=== PATIENT | male | born 1990 | race Caucasian/White ===

== ENCOUNTER → 2016-12-11 | Outpatient (CLI) | payer BC ==
[2016-12-11 12:24] LABS: Anion Gap 13 mmol/L; Blood Urea Nitrogen 14 mg/dL (9-20); Carbon Dioxide 28 mmol/L (22-30); Chloride 103 mmol/L (98-107); Glucose 98 mg/dL (74-99); Non-African American GFR(MDRD) >60 (>60 ml/min/1.73 sqM); Potassium 4.2 mmol/L (3.5-5.1); Sodium 144 mmol/L (137-145)
== END | disposition home or self-care (01) ==
LOC: LABWHC1 11:44
PROVIDERS: ATTEND Internal Medicine Endocrinology, Diabetes & Metabolism
DX: E55.9 Vitamin D deficiency, unspecified (principal); E27.1 Primary adrenocortical insufficiency
CPT/HCPCS: 36415; 80048; 84439; 84443

== ENCOUNTER 2017-03-25 22:07 | Emergency (ER) | payer BC ==
[2017-03-25 22:20] VITALS: BP 132/78; PULSE 90; RESP 18; TEMP 99.1
[2017-03-25] MEDS ORDERED: methylPREDNISolone SOD SUCCI 125 MG/2 ML VIAL IM STA (22:25)
--- NOTE | 2017-03-25 22:29 | ED ---
Skin/Abscess/FB HPI - General Chief complaint: Skin/Abscess/Foreign Body Stated complaint: Poison Amarilys Time Seen by Provider: 03/25/17 22:22 Source: patient, RN notes reviewed Mode of arrival: ambulatory Limitations: no limitations - History of Present Illness Initial comments: 26-year-old male presents to the emergency department with a chief complaint of poison amarilys. 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 Patient states had poison amarilys for the past 2 days. Patient states he tried [id number] treatments without improvement. Patient states that his arms and his legs. Patient denies any genital involvement but states that spread to his neck. Patient states he is without fever. He should be evaluated. Patient states it is not currently having any other symptoms at this time.Patient denies any recent fever, chills, shortness of breath, chest pain, back pain, abdominal pain , nausea vomiting, numbness or tingling, dysuria or hematuria, constipation or diarrhea, headaches or visual changes, or any other current symptoms. - Related Data Home Medications Medication Instructions Recorded Confirmed Fludrocortisone [Florinef] 0.1 mg PO DAILY 04/16/14 10/07/16 Hydrocortisone [Cortef] 10 mg PO HS 04/27/14 10/07/16 Hydrocortisone [Cortef] 20 mg PO QAM 10/07/16 10/07/16 Ranitidine HCl [Zantac] 150 mg PO BID 10/07/16 10/07/16 Previous Rx's Medication Instructions Recorded Albuterol Sulfate [Proair Hfa] 1 - 2 puff INHALATION Q4HR PRN #1 10/07/16 inhaler Azithromycin [Zithromax Z-pack] 0 mg PO DIRECTED #1 pack 10/07/16 methylPREDNISolone [Medrol Dose 4 mg PO DIRECTED #1 pack 10/07/16 Pack] Calamine/Zinc Oxide Lotion 1 applic TOPICAL QID 10 Days 03/25/17 [Calamine Lotion] methylPREDNISolone Dose Pack 4 mg PO DIRECTED #21 package 03/25/17 [Medrol Dose Pack] Allergies Allergy/AdvReac Type Severity Reaction Status Date / Time No Known Allergies Allergy Verified 03/25/17 22:20 Review of Systems ROS Statement: Those systems with pertinent positive or pertinent negative responses have been documented in the HPI. ROS Other: All systems not noted in ROS Statement are negative. Past Medical History Past Medical History: No Reported History Additional Past Medical History / Comment(s): addisons History of Any Multi-Drug Resistant Organisms: None Reported Past Surgical History: No Surgical Hx Reported Additional Past Surgical History / Comment(s): nose surgery Past Anesthesia/Blood Transfusion Reactions: No Reported Reaction Additional Past Anesthesia/Blood Transfusion Reaction / Comment(s): NO PREVIOUS SURGERY Past Psychological History: No Psychological Hx Reported Smoking Status: Former smoker Past Alcohol Use History: Occasional Past Drug Use History: Marijuana General Exam Limitations: no limitations General appearance: alert, in no apparent distress Head exam: Present: atraumatic, normocephalic, normal inspection Respiratory exam: Present: normal lung sounds bilaterally. Absent: respiratory distress, wheezes, rales, rhonchi, stridor Cardiovascular Exam: Present: regular rate, normal rhythm, normal heart sounds. Absent: systolic murmur, diastolic murmur, rubs, gallop, clicks Neurological exam: Present: alert, oriented X3 Psychiatric exam: Present: normal affect, normal mood Skin exam: Present: warm, dry, intact, rash (Appears to have a rash to arms and legs does appear to be a dermatitis.) Course Vital Signs 03/25/17 22:17 Temperature 99.1 F Pulse Rate 90 Respiratory 18 Rate Blood Pressure 132/78 O2 Sat by Pulse 99 Oximetry Medical Decision Making - Medical Decision Making 26-year-old male presents for what appears to be a contact dermatitis from poison amarilys. We will start him on a course of steroids. He did receive a steroid injection here. Discussing Motrin Tylenol. We discussed return parameters and follow-up. We discussed outpatient care. Patient stated he understood all questions were answered. He will be discharged home. Disposition Clinical Impression: Poison amarilys dermatitis Disposition: HOME SELF-CARE Condition: Stable Instructions: Poison Amarilys (ED) Additional Instructions: Please use medication as discussed. Please follow up with family doctor if symptoms have not improved over the next two days. Please return to the emergency room if your symptoms increase or worsen or for any other concerns. Prescriptions: Calamine/Zinc Oxide Lotion [Calamine Lotion] 1 applic TOPICAL QID 10 Days methylPREDNISolone Dose Pack [Medrol Dose Pack] 4 mg PO DIRECTED #21 package Referrals: Pedro Ibarra MD [Primary Care Provider] - 1-2 days Time of Disposition: 22:28
== END 2017-03-25 22:33 | disposition home or self-care (01) ==
LOC: EC 22:07
DX: L23.7 Allergic contact dermatitis due to plants, except food (principal); E27.1 Primary adrenocortical insufficiency; Z87.891 Personal history of nicotine dependence; Z79.899 Other long term (current) drug therapy
CPT/HCPCS: 99283; 96372; J2930

== ENCOUNTER 2018-06-01 10:23 | Emergency (ER) | payer BC ==
[2018-06-01 10:40] VITALS: BP 131/73; PULSE 57; RESP 18; TEMP 98.5
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
--- NOTE | 2018-06-01 11:18 | XR ---
Right hand HISTORY: Trauma and pain 3 views of the right hand There is displaced fifth metacarpal mid diaphyseal fracture with volar angulation. There is soft tiss ue swelling associated. No dislocation. IMPRESSION: Boxer's fracture.
[2018-06-01] MEDS ORDERED: ACET/COD 300 MG/30 MG STARTER PACK 6 TAB BTL PO STA (11:40)
== END 2018-06-01 12:10 | disposition home or self-care (01) ==
LOC: EC 10:23
DX: S62.306A Unspecified fracture of fifth metacarpal bone, right hand, initial encounter for closed fracture (principal); Z79.52 Long term (current) use of systemic steroids; Z87.891 Personal history of nicotine dependence; W22.8XXA Striking against or struck by other objects, initial encounter
CPT/HCPCS: 29125; 99283

== ENCOUNTER → 2018-06-03 | Outpatient (CLI) | payer BC ==
[2018-06-03 10:32] LABS: Potassium 4.3 mmol/L (3.5-5.1)
== END | disposition home or self-care (01) ==
LOC: LABPAT 09:48
PROVIDERS: ATTEND Orthopaedic Surgery
DX: Z01.812 Encounter for preprocedural laboratory examination (principal)
CPT/HCPCS: 36415; 80051

== ENCOUNTER 2018-06-05 10:02 | Day surgery (SDC) | payer BC ==
[2018-06-03 14:30] VITALS: BMI 22.5
--- NOTE | 2018-06-04 09:22 | HP ---
HISTORY AND PHYSICAL CHIEF COMPLAINT: Right hand pain. 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 He is walking on a sidewalk when he fell injuring his right hand. He was seen in the emergency room and was placed into a splint. He denies previous injury. PAST MEDICAL HISTORY: Significant for Robin's disease. SURGICAL HISTORY: Negative. CURRENT ALLERGIES: 1. Cortef. 2. Florinef. 3. Tylenol No. 3. ALLERGIES: He denies drug allergies. FAMILY HISTORY: Noncontributory. SOCIAL HISTORY: Negative for current tobacco or alcohol use. REVIEW OF SYSTEMS: Sixteen point review of systems otherwise reviewed and is noncontributory. PHYSICAL EXAMINATION: On examination, the patient is approximately 5 feet 10 inches, 157 pounds of mesomorphic habitus. He is nontender about the right shoulder, elbow and wrist. On examination of his right hand, he is tender about the 5th metacarpal shaft. He has no rotational abnormality. He has moderate dorsal hand swelling. He has limited range of motion. His distal neurovascular exam appears intact in the right upper extremity. X-rays of the right hand obtained from the emergency room showed a 5th metacarpal shaft fracture with significant angulation and displacement. IMPRESSION: Right 5th metacarpal shaft fracture-displaced. RECOMMENDATIONS: I talked to the patient at length regarding his condition and treatment options. At this point, he opts to proceed with surgery. We will plan to proceed with closed reduction with percutaneous pinning. We will likely perform that as an outpatient procedure. Risks and benefits were discussed at length in layman's terms. MMODL / IJN: [id number] /
[~2018-06-05 10:02] MED LIST: ACETAMINOPHEN TAB 500 MG TAB PO ONE; LACTATED RINGERS 1,000 ML IV SCH; LIDOCAINE 1% 20 ML VIAL (10MG/ML) FOR IV START INTRADERMA PRN; MELOXICAM 7.5 MG TAB PO ONE; TRANEXAMIC ACID 1,000 MG in SODIUM CHLORIDE 0.9% 50 ML IVPB ONE; ceFAZolin IN SWFI 2 GM/20 ML SYRINGE IVP ONE
[2018-06-05 11:41] LABS: Glucose,Whole Blood 38 mg/dL (75-99)
[2018-06-05 11:41] LABS: Glucose,Whole Blood 74 mg/dL (75-99)
[2018-06-05] MEDS ORDERED: MIDAZOLAM 2 MG/2 ML VIAL IV ONE (12:10)
[2018-06-05] MEDS ORDERED: fentaNYL (PF) 50 MCG/ML 2 ML AMP ONE (12:15)
[2018-06-05] MEDS ORDERED: MIDAZOLAM 2 MG/2 ML VIAL ONE (12:15)
[2018-06-05] MEDS ORDERED: HYDROCORTISONE SUCCINATE 100 MG/2 ML VIAL ONE (12:15)
[2018-06-05] MEDS ORDERED: PROPOFOL 10 MG/ML 20 ML VIAL IV ONE (12:15)
[2018-06-05] MEDS ORDERED: ONDANSETRON 4 MG/2 ML VIAL ONE (12:15)
[2018-06-05] MEDS ORDERED: DEXAMETHASONE SOD PHOS (MDV) 100 MG/10 ML VIAL ONE (12:15)
[2018-06-05] MEDS ORDERED: LIDOCAINE 1% INJ 10MG/ML (20 ML MDV) ONE (12:15)
[2018-06-05] MEDS ORDERED: ePHEDrine SULFATE/0.9% NACL/PF 50 MG/5 ML SYRINGE IV ONE (12:15)
--- NOTE | 2018-06-05 12:55 | P.OP ---
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 A discussion of the risks and benefits of operative intervention versus conservative measures was made with patient. He opted to proceed with surgery. Operative risks to include infection, neurovascular injury, development of blood clots, possible development of nonunion, possible development of malunion and need for subsequent procedures was discussed. Informed consent was obtained. Operative Findings: As below Description of Procedure: The patient was brought to the operating room, and after induction of general anesthesia the right upper extremity was prepped and draped in normal fashion. The right fifth metacarpal shaft fracture was then reduced with manipulation. A 0.054 inch K wire was then inserted in a retrograde fashion through the metacarpal head pain fracture site. This is verified on the AP lateral and oblique views with fluoroscopy. I felt there is adequate reduction of the fracture and placement of the implant this point. The K wire was clipped below the level of the skin. A sterile dressing was applied in addition to an ulnar gutter splint with the hand in functional position. Prior to dressing placement a did check rotation and no significant rotational abnormality was noted. The patient was awoken from general anesthesia and transferred to recovery room in good condition. Blood loss was estimated 1 mL. No complications were incurred.
[2018-06-05] MEDS: HYDROmorphone 1 MG/ML 1 ML SYRINGE IVP ONE ×4 (13:06→13:24)
[2018-06-05 13:08] VITALS: RESP 16; TEMP 97
[2018-06-05] MEDS ORDERED: MEPERIDINE 50 MG/ML SYRINGE IVP ONE (13:32)
--- NOTE | 2018-06-05 13:39 | FL ---
EXAMINATION TYPE: FL guidance operating room, XR hand complete RT DATE OF EXAM: 06/05/2018 CLINICAL HISTORY: Right hand fracture TECHNIQUE: Fluoroscopy. Limited intraoperative views right hand. COMPARISON: Right hand x-ray from 4 days ago. FINDINGS: Fluoroscopic guidance was provided during open reduction and external fixation procedure p erformed by Dr. Frias. A total of 39 seconds of fluoroscopic time was utilized during the procedure and 3 spot intraoperative images are acquired. Intraoperative images acquired show placement of K wire through transverse fracture midshaft level fi fth metacarpal. IMPRESSION: As Above.
[2018-06-05 14:43] VITALS: BP 117/75; PULSE 72
== END 2018-06-05 15:00 | disposition home or self-care (01) ==
LOC: OR 10:02
PROVIDERS: ATTEND Orthopaedic Surgery
DX: S62.326A Displaced fracture of shaft of fifth metacarpal bone, right hand, initial encounter for closed fracture (principal); W19.XXXA Unspecified fall, initial encounter; Y93.01 Activity, walking, marching and hiking; E27.1 Primary adrenocortical insufficiency; Y92.480 Sidewalk as the place of occurrence of the external cause; Z88.8 Allergy status to other drugs, medicaments and biological substances; Z88.5 Allergy status to narcotic agent; Z79.52 Long term (current) use of systemic steroids
CPT/HCPCS: 73130; 26608; J2250; J1720; J2175; J2405; J2001; J3010; J1170; J1100; J2704; J0690

== ENCOUNTER 2018-07-14 10:36 | Day surgery (SDC) | payer BC ==
[2018-07-09 11:47] VITALS: BMI 22.5
--- NOTE | 2018-07-13 15:15 | HP ---
HISTORY AND PHYSICAL CHIEF COMPLAINT: Right hand pain. 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 Clinically, he was noted to have denied the fracture site, however, has irritation because of the previously placed pin. PAST MEDICAL HISTORY: Significant for Riverdale's disease. PAST SURGICAL HISTORY: Significant for pinning of a right 5th metacarpal shaft fracture. CURRENT MEDICATIONS: Cortef and Florinef. ALLERGIES: He denies drug allergies. FAMILY HISTORY: Negative. SOCIAL HISTORY: Negative for current tobacco or alcohol use. REVIEW OF SYSTEMS: Sixteen point review of systems otherwise reviewed and is noncontributory. PHYSICAL EXAMINATION: On examination, the patient is approximately 5 foot 10, 157 pounds of mesomorphic habitus. HEENT exam is nonfocal. Neck is supple. He is nontender about the right shoulder, elbow and wrist. On examination of his right hand, he is nontender about the 5th metacarpal shaft. He has full digital range of motion. He has tenderness over the palpable distal pin at the metacarpal head. His distal neurovascular appears intact in the right digits. X-rays of the right hand obtained in the office show previous pinning of a 5th metacarpal shaft fracture in good alignment with moderate callus formation. IMPRESSION: 1. Status post closed reduction and pinning, right 5th metacarpal shaft fracture. 2. Irritating hardware, right 5th digit. 3. History of Riverdale's disease. RECOMMENDATIONS: I talked to the patient regarding his options at this point. At this point, we will plan to proceed with removal of the pin utilizing local anesthetic and IV sedation. We will likely perform that as an outpatient procedure. MMODL / IJN: [id number] /
[~2018-07-14 10:36] MED LIST changes: -ACETAMINOPHEN TAB 500 MG TAB PO ONE; +DEXAMETHASONE SOD PHOSPHATE 10 MG/ML 1 ML VIAL IV ONE; -MELOXICAM 7.5 MG TAB PO ONE; +MIDAZOLAM 2 MG/2 ML VIAL IV PRN; +ONDANSETRON 4 MG/2 ML VIAL IVP ONE; -TRANEXAMIC ACID 1,000 MG in SODIUM CHLORIDE 0.9% 50 ML IVPB ONE; +fentaNYL (PF) 50 MCG/ML 2 ML AMP IV PRN
[2018-07-14 11:02] VITALS: RESP 16; TEMP 98
[2018-07-14 11:08] LABS: Glucose,Whole Blood 87 mg/dL (75-99)
[2018-07-14] MEDS ORDERED: MIDAZOLAM 2 MG/2 ML VIAL ONE (13:01)
[2018-07-14] MEDS ORDERED: SPIRONOLACTONE-HCTZ 25-25MG 1 EACH TAB ONE (13:01)
[2018-07-14] MEDS ORDERED: PROPOFOL 10 MG/ML 20 ML VIAL IV ONE (13:01)
[2018-07-14] MEDS ORDERED: fentaNYL (PF) 50 MCG/ML 2 ML AMP ONE (13:01)
[2018-07-14] MEDS ORDERED: LIDOCAINE 1% INJ 10MG/ML (20 ML MDV) SQ ONE ×3 (13:08)
--- NOTE | 2018-07-14 13:16 | P.OP ---
Date of Procedure: 07/14/18 Preoperative Diagnosis: Irritating hardware right fifth metacarpal Postoperative Diagnosis: Same Procedure(s) Performed: Removal K wire right fifth metacarpal Anesthesia: MAC, local Surgeon: Yaron Frias Estimated Blood Loss (ml): 1 Pathology: none sent Condition: stable Disposition: PACU Indications for Procedure: The patient's a 27-year-old male who underwent recent closed reduction with pinning of right fifth metacarpal shaft fracture presents with irritation secondary to the hardware. Discussion of the risks and benefits of removal this was made with the patient. He opted to proceed. Operative risks were discussed. Informed consent was obtained. Operative Findings: As below Description of Procedure: The patient was brought to the operating room, and after induction of IV sedation the right upper extremity was prepped and draped in normal fashion. 5 mL 1% lidocaine was injected over the fifth metacarpal head. A small stab incision was made over the palpable K wire. The soft tissues were bluntly dissected and the K wire removed. The wound was irrigated. The skin was reapproximated with Steri-Strips. A sterile dressing was applied. The patient was then awoken from sedation and transferred to recovery room in good condition. Blood loss was estimated 1 mL. No complications were incurred.
[2018-07-14 13:41] VITALS: BP 119/73; PULSE 75
== END 2018-07-14 14:05 | disposition home or self-care (01) ==
LOC: OR 10:36
PROVIDERS: ATTEND Orthopaedic Surgery
DX: T84.89XA Other specified complication of internal orthopedic prosthetic devices, implants and grafts, initial encounter (principal); Y83.8 Other surgical procedures as the cause of abnormal reaction of the patient, or of later complication, without mention of misadventure at the time of the procedure; E27.1 Primary adrenocortical insufficiency; Z79.899 Other long term (current) drug therapy
CPT/HCPCS: 20680; J2250; J1100; J2405; J2001; J3010; J2704; J0690

== ENCOUNTER 2018-11-20 15:01 | Observation (INO) | payer BC ==
[2018-11-20] MEDS ORDERED: ONDANSETRON 4 MG/2 ML VIAL IVP STA (15:49)
[2018-11-20] MEDS ORDERED: SODIUM CHLORIDE 0.9% 1,000 ML IV STA ×2 (15:49→17:24)
[2018-11-20] MEDS ORDERED: KETOROLAC 30 MG/ML 1 ML VIAL IVP STA (15:49)
--- NOTE | 2018-11-20 15:56 | ED ---
General Adult HPI - General Source: patient, RN notes reviewed Mode of arrival: ambulatory Limitations: no limitations - History of Present Illness Location: abdomen Radiation: non-radiation Quality: stabbing Consistency: constant Improves with: none Worsens with: none <Marco Haile - Last Filed: 11/20/18 17:54> <Hong Rodriguez - Last Filed: 11/20/18 18:16> - General Chief complaint: Abdominal Pain Stated complaint: vomiting Time Seen by Provider: 11/20/18 15:39 - History of Present Illness Initial comments: 27-year-old male with a past medical history of Robin's disease presents to the emergency department for a chief complaint of abdominal pain, nausea, and vomiting. Patient states this has been ongoing for the past 3 days. He states he has been nauseous and vomited multiple times. He has also had diarrhea multiple times a day. Patient states he was seen by his primary yesterday and given Zofran but it is not helping. Patient states he also has generalized abdominal pain worsen the left upper quadrant. He states he has never had problems with Robin's disease before. Patient has no other complaints at this time including shortness of breath, chest pain, abdominal pain, nausea or vomiting, headache, or visual changes. (Marco Haile) - Related Data Home Medications Medication Instructions Recorded Confirmed Fludrocortisone [Florinef] 0.1 mg PO DAILY 04/16/14 11/20/18 Hydrocortisone [Cortef] 5 mg PO HS 11/20/18 11/20/18 Hydrocortisone [Cortef] 10 mg PO QAM 11/20/18 11/20/18 Ondansetron [Zofran ODT] 4 mg PO Q12H PRN 11/20/18 11/20/18 Allergies Allergy/AdvReac Type Severity Reaction Status Date / Time No Known Allergies Allergy Verified 11/20/18 16:24 Review of Systems ROS Other: All systems not noted in ROS Statement are negative. <Marco Haile - Last Filed: 11/20/18 17:54> ROS Other: All systems not noted in ROS Statement are negative. <Hong Rodriguez - Last Filed: 11/20/18 18:16> ROS Statement: Those systems with pertinent positive or pertinent negative responses have been documented in the HPI. Past Medical History Past Medical History: No Reported History Additional Past Medical History / Comment(s): addisons disease, fx rt hand History of Any Multi-Drug Resistant Organisms: None Reported Past Surgical History: No Surgical Hx Reported Additional Past Surgical History / Comment(s): nose surgery. FX RIGHT HAND SX Past Anesthesia/Blood Transfusion Reactions: No Reported Reaction Additional Past Anesthesia/Blood Transfusion Reaction / Comment(s): NO PREVIOUS SURGERY Past Psychological History: No Psychological Hx Reported Smoking Status: Former smoker Past Alcohol Use History: Occasional Past Drug Use History: Marijuana - Past Family History Mother Family Medical History: No Reported History <Marco Haile - Last Filed: 11/20/18 17:54> General Exam Limitations: no limitations General appearance: alert, in no apparent distress Head exam: Present: atraumatic, normocephalic, normal inspection Eye exam: Present: normal appearance ENT exam: Present: normal exam, mucous membranes moist Neck exam: Present: normal inspection, full ROM. Absent: tenderness, meningismus, lymphadenopathy Respiratory exam: Present: normal lung sounds bilaterally. Absent: respiratory distress, wheezes, rales, rhonchi, stridor Cardiovascular Exam: Present: regular rate, normal rhythm, normal heart sounds. Absent: systolic murmur, diastolic murmur, rubs, gallop, clicks GI/Abdominal exam: Present: soft, tenderness (minimal generalized tenerness worse in LUQ without gaurding.), normal bowel sounds. Absent: distended, guarding, rebound, rigid Neurological exam: Present: alert, oriented X3, CN II-XII intact Psychiatric exam: Present: normal affect, normal mood <Marco Haile - Last Filed: 11/20/18 17:54> Course <Marco Haile - Last Filed: 11/20/18 17:54> <Hong Rodriguez - Last Filed: 11/20/18 18:16> Vital Signs 11/20/18 11/20/18 15:11 16:23 Temperature 98.2 F Pulse Rate 107 H 89 Respiratory 18 18 Rate Blood Pressure 114/77 129/92 O2 Sat by Pulse 97 100 Oximetry - Reevaluation(s) Reevaluation #1: 11/20/18 17:44 PA supervision: I proceeded [id number] evaluation the patient the patient's been having nausea vomiting and has a history of adrenal insufficiency. He is found to be markedly dehydrated with hemoconcentration and renal insufficiency. Patient will be admitted. I did discuss the case with Dr. Alarcon who was in the emergency department. I do agree with the assessment and plan. (Hong Rodriguez) Medical Decision Making - Lab Data Result diagrams: 11/20/18 16:09 11/20/18 16:09 <Marco Haile - Last Filed: 11/20/18 17:54> - Lab Data Result diagrams: 11/20/18 16:09 11/20/18 16:09 <Hong Rodriguez - Last Filed: 11/20/18 18:16> - Medical Decision Making 27-year-old male presents to the emergency department for a chief complaint of nausea vomiting, diarrhea, abdominal pain. Patient does have a history of Robin's disease, takes solu-cortef, solu-flornef at home. Patient states this has been ongoing for the past 3 days. Vitals within acceptable limits. On exam patient does have some abdominal tenderness worse in the left upper quadrant. Hemoglobin 20.1, hematocrit 56.1. Creatinine 1.68. Patient likely dehydrated from being unable to keep down solids or liquids over the past 3 days. Given 2 L fluids. Patient also has not been able to keep down his Solu-Cortef. This was ordered and patient was given 100 mg. Acute abdominal series was ordered to rule out free air as patient does have upper abdominal pain. This showed a normal chest. Report an image was reviewed by myself and Dr. Rodriguez. Dr. Alarcon was spoken to about this case and accepts admission at this time. ( Marco Haile) - Lab Data Lab Results 11/20/18 11/20/18 Range/Units 16:09 16:09 WBC 13.2 H (3.8-10.6) k/uL RBC 6.94 H (4.30-5.90) m/uL Hgb 20.1 H* (13.0-17.5) gm/dL Hct 56.1 H (39.0-53.0) % MCV 80.9 (80.0-100.0) fL MCH 29.0 (25.0-35.0) pg MCHC 35.9 (31.0-37.0) g/dL RDW 12.1 (11.5-15.5) % Plt Count 279 (150-450) k/uL Neutrophils % 73 % Lymphocytes % 15 % Monocytes % 8 % Eosinophils % 2 % Basophils % 0 % Neutrophils # 9.7 H (1.3-7.7) k/uL Lymphocytes # 1.9 (1.0-4.8) k/uL Monocytes # 1.0 (0-1.0) k/uL Eosinophils # 0.3 (0-0.7) k/uL Basophils # 0.0 (0-0.2) k/uL Sodium 139 (137-145) mmol/L Potassium 4.6 (3.5-5.1) mmol/L Chloride 98 (98-107) mmol/L Carbon Dioxide 23 (22-30) mmol/L Anion Gap 18 mmol/L BUN 23 H (9-20) mg/dL Creatinine 1.68 H (0.66-1.25) mg/dL Est GFR (CKD-EPI)AfAm 65 (>60 ml/min/1.73 sqM) Est GFR (CKD-EPI)NonAf 56 (>60 ml/min/1.73 sqM) Glucose 90 (74-99) mg/dL Calcium 11.2 H (8.4-10.2) mg/dL Total Bilirubin 1.6 H (0.2-1.3) mg/dL AST 37 (17-59) U/L ALT 46 (21-72) U/L Alkaline Phosphatase 75 (38-126) U/L Total Protein 9.2 H (6.3-8.2) g/dL Albumin 5.5 H (3.5-5.0) g/dL Amylase 94 (30-110) U/L Lipase 57 (23-300) U/L Cortisol 5 ug/dL Disposition Is patient prescribed a controlled substance at d/c from ED?: No Time of Disposition: 17:52 <Marco Haile - Last Filed: 11/20/18 17:54> <Hong Rodriguez - Last Filed: 11/20/18 18:16> Clinical Impression: Adrenal insufficiency, Vomiting and diarrhea, Abdominal pain, Acute renal injury Disposition: ADMITTED IP TO THIS HOSP Condition: Good Referrals: Pedro Ibarra MD [Primary Care Provider] - 1-2 days
[2018-11-20 16:20] LABS: Basophils % (A) 0 %; Eosinophils # (A) 0.3 k/uL (0-0.7); Eosinophils % (A) 2 %; Lymphocytes # (A) 1.9 k/uL (1.0-4.8); Lymphocytes % (A) 15 %; MCHC 35.9 g/dL (31.0-37.0); MCV 80.9 fL (80.0-100.0); Mean Platelet Volume 6.9; Monocytes % (A) 8 %; Neutrophils # (A) 9.7 k/uL (1.3-7.7); Neutrophils % (A) 73 %; Platelet Count 279 k/uL (150-450); RBC 6.94 m/uL (4.30-5.90); RDW 12.1 % (11.5-15.5); WBC 13.2 k/uL (3.8-10.6)
[2018-11-20 16:31] LABS: HCT 56.1 % (39.0-53.0); HGB 20.1 gm/dL (13.0-17.5)
[2018-11-20 16:33] LABS: Albumin 5.5 g/dL (3.5-5.0); Calcium 11.2 mg/dL (8.4-10.2); Potassium 4.6 mmol/L (3.5-5.1); Total Bilirubin 1.6 mg/dL (0.2-1.3); Total Protein 9.2 g/dL (6.3-8.2)
--- NOTE | 2018-11-20 17:19 | XR ---
EXAMINATION TYPE: XR abdomen acute w cxr DATE OF EXAM: 11/20/2018 COMPARISON: NONE HISTORY: Vomiting TECHNIQUE: Chest x-ray with supine and upright abdomen FINDINGS: Heart and mediastinum are normal. Lungs are clear. Diaphragm is normal. Bowel gas pattern is normal. There is no sign of intestinal obstruction or pneumoperitoneum. Fecal pattern is normal. There are no pathologic calcifications. IMPRESSION: Normal chest. Nonacute abdomen.
[2018-11-20] MEDS ORDERED: HYDROCORTISONE SUCCINATE 100 MG/2 ML VIAL IV STA (17:24)
[2018-11-20] MEDS ORDERED: NALOXONE 0.4 MG/ML 1 ML VIAL IV PRN (17:52)
[2018-11-20] MEDS ORDERED: MORPHINE SULFATE 4 MG/ML SYRINGE IV PRN (17:52)
[2018-11-20] MEDS ORDERED: KETOROLAC 30 MG/ML 1 ML VIAL IVP PRN (17:52)
[2018-11-20] MEDS ORDERED: ONDANSETRON 4 MG/2 ML VIAL IVP PRN (17:52)
[2018-11-20] MEDS ORDERED: SODIUM CHLORIDE 0.9% 1,000 ML IV SCH ×2 (18:00→19:00)
[2018-11-20] MEDS ORDERED: ACETAMINOPHEN TAB 325 MG TAB PO PRN (18:48)
--- NOTE | 2018-11-20 18:58 | P.HPIM ---
History of Present Illness Chief Complaint: nausea vomiting and diarrhea this is 27-year-old male who presents to emergency department with 3 days of nausea vomiting diarrhea no abdominal discomfort Patient has history of adrenal insufficiency diagnosed at age 15 presumably to be out immune in nature. Home medications include hydrocortisone 5 mg in the evening and 10 mg in the morning and Florinef Patient reports nausea vomiting and abdominal pain and diarrhea that started about 3 days ago. He states that he was in usual state of health when he started feeling nauseated and vomited several times no violence known bloody fluid. Nausea was constant and provoked with any attempt by mouth intake. Subsequently he started developing watery diarrhea multiple bowel movements a day no blood or melena or mucus. He also has some chills and malaise but no fever. He also started experiencing after that some colicky abdominal discomfort in mid of his abdomen without any particular radiation. denies any sick contacts denies any fever. denies any travel or animal exposure. In the emergency Department x-ray of abdomen was unremarkable. He had elevated creatinine to be when. Also elevated calcium and hemoglobin and hematocrit. He was started on IV fluids and admitted for further observation. Review of Systems REVIEW OF SYSTEMS: CONSTITUTIONAL: No fever or chills HEENT: No changes in vision or voice CARDIOVASCULAR: no chest pain or abnormal heart beats, or any swelling in ankles or feet. RESPIRATORY: No wheezing or coughing. GASTROINTESTINAL: No abdominal pain, no nausea no vomiting no constipation or diarrhea GENITOURINARY: no any urinary urgency, frequency or burning, and there has been no blood in her urine. no flank pain. MUSCULOSKELETAL: She notes full range of motion of all her joints without pain or swelling. NEUROLOGICAL: , no headache. no vision changes, or fainting. No numbness or tingling. Past Medical History Past Medical History: No Reported History Additional Past Medical History / Comment(s): addisons disease, fx rt hand History of Any Multi-Drug Resistant Organisms: None Reported Past Surgical History: No Surgical Hx Reported Additional Past Surgical History / Comment(s): nose surgery. FX RIGHT HAND SX Past Anesthesia/Blood Transfusion Reactions: No Reported Reaction Additional Past Anesthesia/Blood Transfusion Reaction / Comment(s): NO PREVIOUS SURGERY Past Psychological History: No Psychological Hx Reported Smoking Status: Former smoker Past Alcohol Use History: Occasional Past Drug Use History: Marijuana - Past Family History Mother Family Medical History: No Reported History Medications and Allergies Home Medications Medication Instructions Recorded Confirmed Type Fludrocortisone [Florinef] 0.1 mg PO DAILY 04/16/14 11/20/18 History Hydrocortisone [Cortef] 5 mg PO HS 11/20/18 11/20/18 History Hydrocortisone [Cortef] 10 mg PO QAM 11/20/18 11/20/18 History Ondansetron [Zofran ODT] 4 mg PO Q12H PRN 11/20/18 11/20/18 History Allergies Allergy/AdvReac Type Severity Reaction Status Date / Time No Known Allergies Allergy Verified 11/20/18 16:24 Physical Exam Vitals: Vital Signs Temp Pulse Resp BP Pulse Ox 11/20/18 18:23 97.8 F 80 18 131/85 99 11/20/18 16:23 89 18 129/92 100 11/20/18 15:11 98.2 F 107 H 18 114/77 97 Intake and Output 11/20/18 11/20/18 11/20/18 06:59 14:59 22:59 Other: Weight 72.575 kg Vital Signs: I have reviewed the vital signs. GENERAL: Well-nourished, Well-developed , no apparent distress, cooperative Eyes: PERRL, extraoculry movements intact, clear conjunctiva Head: : Atraumatic external nose and ears, oropharyngeal mucosa is moist without lesions or exudates Neck: Symmetric, trachea midline, No thyromegaly, no masses or neck vain pulsation, no neck rigidity CVS: +S1/S2, No murmurs or gallops. Peripheral pulses 2+ and equal in all extremities. RESP: Unlabored respiratory effort. Clear to auscultation bilaterally. Abdomen: Bowel sounds present in all 4 quadrants, Soft to palpation, Nontender/ Nondistended, No hepatosplenomegaly, no hernias or masses, no CVA tnderness Musculoskeletal: Extremities w/o deformity, No cyanosis or clubbing, no joint swelling Skin: Warm, Dry. 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 grossly intact, motor strenght 5/5 i upper and lower extremities, no clonus, patellar DTRs 2+ and sympetrical Psych: Awake, Alert, & Oriented (AAO) x3 Appropriate mood and affect Results CBC & Chem 7: 11/20/18 16:09 11/20/18 16:09 Labs: Abnormal Lab Results - Last 24 Hours (Table) 11/20/18 11/20/18 Range/Units 16:09 16:09 WBC 13.2 H (3.8-10.6) k/uL RBC 6.94 H (4.30-5.90) m/uL Hgb 20.1 H* (13.0-17.5) gm/dL Hct 56.1 H (39.0-53.0) % Neutrophils # 9.7 H (1.3-7.7) k/uL BUN 23 H (9-20) mg/dL Creatinine 1.68 H (0.66-1.25) mg/dL Calcium 11.2 H (8.4-10.2) mg/dL Total Bilirubin 1.6 H (0.2-1.3) mg/dL Total Protein 9.2 H (6.3-8.2) g/dL Albumin 5.5 H (3.5-5.0) g/dL Assessment and Plan Assessment: 1 acute gastroenteritis With severe dehydration and inability to keep by mouth intake Admit for observation Continue aggressive IV fluids with normal saline 150 mL/h His blood pressure is stable Recheck electrolytes and renal function in the morning Strict I's and O's 2. Acute kidney injury Novolin according prerenal continue IV fluids repeat creatinine the morning Eyes and nose 3. Chronic adrenal insufficiency *Stress dose of steroids for 24 hours continue home Malcolm 4. Hypercalcemia Likely related to dehydration We will recommend the patient follow-up with his calciums when he is better hydrated
[2018-11-20 21:08] VITALS: BMI 22.4
[2018-11-20] MEDS: FLUDROCORTISONE 0.1 MG TAB PO SCH (21:08)
[2018-11-20] MEDS: HYDROCORTISONE SUCCINATE 100 MG/2 ML VIAL IV SCH (23:08)
[2018-11-21 08:11] VITALS: RESP 16
[2018-11-21 08:23] LABS: ALT 29 U/L (21-72); AST 24 U/L (17-59); Alkaline Phosphatase 47 U/L (38-126); Anion Gap 11 mmol/L; Basophils % (A) 0 %; Blood Urea Nitrogen 19 mg/dL (9-20); Calcium 9.3 mg/dL (8.4-10.2); Carbon Dioxide 21 mmol/L (22-30); Chloride 107 mmol/L (98-107); Eosinophils # (A) 0.1 k/uL (0-0.7); Eosinophils % (A) 1 %; Glucose 96 mg/dL (74-99); HCT 47.5 % (39.0-53.0); Lymphocytes # (A) 1.4 k/uL (1.0-4.8); Lymphocytes % (A) 13 %; MCH 28.6 pg (25.0-35.0); MCHC 34.3 g/dL (31.0-37.0); MCV 83.3 fL (80.0-100.0); Monocytes # (A) 0.9 k/uL (0-1.0); Monocytes % (A) 8 %; Neutrophils # (A) 8.7 k/uL (1.3-7.7); Neutrophils % (A) 76 %; Platelet Count 235 k/uL (150-450); Potassium 4.9 mmol/L (3.5-5.1); RBC 5.71 m/uL (4.30-5.90); RDW 12.2 % (11.5-15.5); Sodium 139 mmol/L (137-145); Total Bilirubin 1.2 mg/dL (0.2-1.3); Total Protein 6.7 g/dL (6.3-8.2); WBC 11.4 k/uL (3.8-10.6)
[2018-11-21 08:27] LABS: HGB 16.3 gm/dL (13.0-17.5)
[2018-11-21] MEDS: FLUDROCORTISONE 0.1 MG TAB PO SCH (09:23)
[2018-11-21] MEDS: HYDROCORTISONE SUCCINATE 100 MG/2 ML VIAL IV SCH ×2 (09:24→16:16)
--- NOTE | 2018-11-21 10:05 | P.PN ---
Subjective 27-year-old male admitted with nausea vomiting diarrhea and abdominal cramping pain. Extra showed some ileus-like findings without any small bowel obstruction he was very dehydrated with elevated creatinine and not able to keep anything by mouth. 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 Interval history: Patient was aggressively hydrated overnight and start stress dose steroid. This morning his doing much better as his nausea and vomiting have resolved his tolerating clear liquid diet. He still having some diarrhea this morning he reported 1 loose bowel movement. He has some cramping in his abdomen but that's getting actually better. His vital signs stable. We are awaiting morning labs REVIEW OF SYSTEMS: CONSTITUTIONAL: No fever or chills HEENT: No changes in vision or voice CARDIOVASCULAR: no chest pain or abnormal heart beats, or any swelling in ankles or feet. RESPIRATORY: No wheezing or coughing. GASTROINTESTINAL: As per HPI GENITOURINARY: no any urinary urgency, frequency or burning, and there has been no blood in her urine. no flank pain. MUSCULOSKELETAL: She notes full range of motion of all her joints without pain or swelling. NEUROLOGICAL: , no headache. no vision changes, or fainting. No numbness or tingling. Objective - Vital Signs Vital signs: Vital Signs Temp 97.5 F L 11/21/18 08:00 Pulse 85 11/21/18 08:00 Resp 16 11/21/18 08:00 BP 125/77 11/21/18 08:00 Pulse Ox 100 11/21/18 08:00 Intake & Output 11/20/18 11/21/18 11/21/18 18:59 06:59 18:59 Weight 72.575 kg 72.9 kg Other: Voiding Method Toilet # Voids 2 - Exam Vital Signs: I have reviewed the vital signs. GENERAL: Awake alert oriented 3 no apparent distress, cooperative Eyes: PERRL, extraoculry movements intact, clear conjunctiva Head: : Atraumatic external nose and ears, oropharyngeal mucosa is moist without lesions or exudates Neck: Symmetric, trachea midline, No thyromegaly, no masses or neck vain pulsation, no neck rigidity CVS: +S1/S2, No murmurs or gallops. Peripheral pulses 2+ and equal in all extremities. RESP: Unlabored respiratory effort. Clear to auscultation bilaterally. Abdomen: Bowel sounds present in all 4 quadrants, Soft to palpation, Nontender/ Nondistended, No hepatosplenomegaly, no hernias or masses, no CVA tnderness Musculoskeletal: Extremities w/o deformity, No cyanosis or clubbing, no joint swelling Skin: Warm, Dry. No rashes or lesions - Labs CBC & Chem 7: 11/21/18 07:48 11/21/18 07:48 Labs: Abnormal Lab Results - Last 24 Hours (Table) 11/20/18 11/20/18 11/20/18 Range/Units 16:09 16:09 16:30 WBC 13.2 H (3.8-10.6) k/uL RBC 6.94 H (4.30-5.90) m/uL Hgb 20.1 H* (13.0-17.5) gm/dL Hct 56.1 H (39.0-53.0) % Neutrophils # 9.7 H (1.3-7.7) k/uL Carbon Dioxide (22-30) mmol/L BUN 23 H (9-20) mg/dL Creatinine 1.68 H (0.66-1.25) mg/dL Calcium 11.2 H (8.4-10.2) mg/dL Total Bilirubin 1.6 H (0.2-1.3) mg/dL Total Protein 9.2 H (6.3-8.2) g/dL Albumin 5.5 H (3.5-5.0) g/dL ACTH >1250.00 H (0.00-45.99) pg/mL 11/21/18 11/21/18 Range/Units 07:48 07:48 WBC 11.4 H (3.8-10.6) k/uL RBC (4.30-5.90) m/uL Hgb (13.0-17.5) gm/dL Hct (39.0-53.0) % Neutrophils # 8.7 H (1.3-7.7) k/uL Carbon Dioxide 21 L (22-30) mmol/L BUN (9-20) mg/dL Creatinine (0.66-1.25) mg/dL Calcium (8.4-10.2) mg/dL Total Bilirubin (0.2-1.3) mg/dL Total Protein (6.3-8.2) g/dL Albumin (3.5-5.0) g/dL ACTH (0.00-45.99) pg/mL Assessment and Plan Assessment: 1 acute gastroenteritis Improving Able to tolerate clear liquid diet Advance diet as tolerated to regular diet Continue IV fluids for now until he reaches full by mouth intake Monitor for diarrhea if Patient can keep sufficient by mouth intake to keep himself hydrated and able to take his medications will consider discharging later on today. 2. 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 Hypercalcemia Likely related to dehydration Recheck calcium today Follow up calcium on outpatient basis in 2-3 weeks
[2018-11-21 16:16] VITALS: BP 133/77; PULSE 65; TEMP 98.6
--- NOTE | 2018-11-21 17:09 | P.DS ---
Providers Date of admission: 11/20/18 17:43 Attending physician: Beatriz Martin DO Primary care physician: Pedro Ibarra Hospital Course: Date of admission 11/20/2018 Date of discharge 11/21/2018 Reason for admission: Nausea vomiting diarrhea Discharge diagnoses #1 acute gastroenteritis #2 acute dehydration due to above #3 acute kidney injury due to above #4 Summers disease Procedures done this admission: None Studies: X-ray of abdomen showing ileus Hospital course: This is a 27-year-old male without past medical history of adrenal insufficiency former Summers disease who presented with 2 days of nausea no bile was nonbloody vomiting and multiple episodes of nonbloody watery diarrhea with some abdominal cramping. Patient stated that this was preceded by malaise. He was not able to keep any food or liquid down and due to concern for him not able to take his corticosteroid medication skin to emergency department. Found to be severely dehydrated with slightly elevated creatinine BUN and ability to keep by mouth intake he was admitted. On admission his vital signs were stable. Blood pressure was stable normal. Blood glucose was stable normal. He was showing signs of dehydration. Patient was started on IV fluids stress dose steroids. Stool was negative for C. diff. Antiemetics were given when necessary. With above mentioned treatment his condition improved. His nausea and vomiting completely resolved and on the day of discharge she only had 1 loose bowel movement. Abdominal cramping and discomfort resolved. He was able to tolerate a regular diet. He was discharged home without changes in his home medication Plan - Discharge Summary New Discharge Prescriptions: Continue Fludrocortisone [Florinef] 0.1 mg PO DAILY Ondansetron [Zofran ODT] 4 mg PO Q12H PRN PRN Reason: Nausea Hydrocortisone [Cortef] 10 mg PO QAM Hydrocortisone [Cortef] 5 mg PO HS Discharge Medication List Fludrocortisone [Florinef] 0.1 mg PO DAILY 04/16/14 [History] Hydrocortisone [Cortef] 5 mg PO HS 11/20/18 [History] Hydrocortisone [Cortef] 10 mg PO QAM 11/20/18 [History] Ondansetron [Zofran ODT] 4 mg PO Q12H PRN 11/20/18 [History] Follow up Appointment(s)/Referral(s): Nedic,Pedro, MD [Primary Care Provider] - 1-2 days Patient Instructions/Handouts: Dehydration (GEN), Gastroenteritis (GEN) Care Plan Goals (MU): follow up with PCP Keep hydrated Discharge Disposition: HOME SELF-CARE
== END 2018-11-21 17:22 | disposition home or self-care (01) ==
LOC: EC 15:01 → 1SOBS 17:43
PROVIDERS: ADMIT Internal Medicine; ATTEND Internal Medicine
DX: K52.9 Noninfective gastroenteritis and colitis, unspecified (principal); N17.9 Acute kidney failure, unspecified; E86.0 Dehydration; E27.1 Primary adrenocortical insufficiency; E83.52 Hypercalcemia; E86.1 Hypovolemia; K56.7 Ileus, unspecified; Z79.899 Other long term (current) drug therapy; Z87.891 Personal history of nicotine dependence
CPT/HCPCS: 96376 ×2; 96361; 96374; 96375; 99285; 36415; 80053 ×2; 82533; 82150; 83690; 85025 ×2; 82024; 87045; 87046; 74022; G0378 ×2; J1720 ×2; J2405; J1885

== ENCOUNTER → 2018-11-30 | Outpatient (CLI) | payer BC ==
--- NOTE | 2018-11-30 10:54 | US ---
EXAMINATION TYPE: US abdomen complete DATE OF EXAM: 11/30/2018 COMPARISON: NONE CLINICAL HISTORY: R10.9 Abdominal Pain. left sided pain EXAM MEASUREMENTS: Liver Length: 14.3 cm Gallbladder Wall: 0.1 cm CBD: 0.3 cm Spleen: 10.5 cm Right Kidney: 10.1 x 5.7 x 4.0 cm Left Kidney: 11.0 x 5.2 x 5.0 cm Pancreas: wnl Liver: wnl Gallbladder: wnl Evidence for sonographic Shephedr's sign: no CBD: wnl Spleen: wnl Right Kidney: wnl Left Kidney: wnl Upper IVC: wnl Abd Aorta: wnl The liver is homogenous. The intrahepatic portion of the IVC and proximal abdominal aorta are within normal limits. There is no evidence of cholelithiasis. Common bile duct is unremarkable. The visu alized portions of the pancreas are homogenous. The spleen is unremarkable. Kidneys are symmetric a nd free of hydronephrosis. No renal lesions are seen. IMPRESSION: Unremarkable abdominal ultrasound. No sonographic findings to correspond to the patient's left-sided pain.
== END | disposition home or self-care (01) ==
LOC: RADUSWWP 08:19
PROVIDERS: ATTEND Family Medicine
DX: R10.9 Unspecified abdominal pain (principal)
CPT/HCPCS: 76700

== ENCOUNTER 2018-12-23 07:44 | Emergency (ER) | payer BC ==
[2018-12-23 07:51] VITALS: TEMP 99.1
--- NOTE | 2018-12-23 08:08 | ED ---
General Adult HPI - General Chief complaint: Chest Pain Stated complaint: chest congestion/cough Time Seen by Provider: 12/23/18 07:52 Source: patient, RN notes reviewed, old records reviewed Mode of arrival: ambulatory Limitations: no limitations - History of Present Illness Initial comments: 28-year-old male history of varices disease presents with progressive cough and dyspnea. Patient states his cough is productive of clear sputum, has progressed over the past 3 months. Patient reports development of some mild chest pain associated with his cough. 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 He has followed with his primary care physician and received albuterol which she has used daily with only short-term relief. Patient is currently on Florinef and Cortef, no recent change in medications. Denies associated symptoms, no fever, no peripheral edema, no central radiating chest pain. - Related Data Home Medications Medication Instructions Recorded Confirmed Fludrocortisone [Florinef] 0.1 mg PO DAILY 04/16/14 12/23/18 Hydrocortisone [Cortef] 5 mg PO HS 11/20/18 12/23/18 Hydrocortisone [Cortef] 10 mg PO QAM 11/20/18 12/23/18 Previous Rx's Medication Instructions Recorded Albuterol Inhaler [Ventolin Hfa 1 - 2 puff INHALATION Q4HR PRN #1 12/23/18 Inhaler] inhaler Allergies Allergy/AdvReac Type Severity Reaction Status Date / Time No Known Allergies Allergy Verified 12/23/18 08:41 Review of Systems ROS Statement: Those systems with pertinent positive or pertinent negative responses have been documented in the HPI. ROS Other: All systems not noted in ROS Statement are negative. Past Medical History Past Medical History: No Reported History Additional Past Medical History / Comment(s): addisons disease, fx rt hand History of Any Multi-Drug Resistant Organisms: None Reported Past Surgical History: No Surgical Hx Reported Additional Past Surgical History / Comment(s): nose surgery. FX RIGHT HAND SX Past Anesthesia/Blood Transfusion Reactions: No Reported Reaction Additional Past Anesthesia/Blood Transfusion Reaction / Comment(s): NO PREVIOUS SURGERY Past Psychological History: No Psychological Hx Reported Smoking Status: Former smoker Past Alcohol Use History: Occasional Past Drug Use History: Marijuana - Past Family History Mother Family Medical History: Thyroid Disorder Father Family Medical History: Diabetes Mellitus General Exam Limitations: no limitations General appearance: alert, in no apparent distress Head exam: Present: atraumatic, normocephalic Eye exam: Present: normal appearance, PERRL ENT exam: Present: normal exam Neck exam: Present: normal inspection. Absent: tenderness, meningismus Respiratory exam: Present: respiratory distress, wheezes Cardiovascular Exam: Present: regular rate, normal rhythm GI/Abdominal exam: Present: soft. Absent: distended, tenderness Extremities exam: Present: normal inspection, normal capillary refill. Absent: pedal edema Neurological exam: Present: alert, oriented X3, CN II-XII intact. Absent: motor sensory deficit Psychiatric exam: Present: normal affect, normal mood Skin exam: Present: warm, dry, intact. Absent: cyanosis, diaphoretic Course Vital Signs 12/23/18 07:47 Temperature 99.1 F Pulse Rate 109 H Respiratory 16 Rate Blood Pressure 120/84 O2 Sat by Pulse 98 Oximetry Medical Decision Making - Medical Decision Making 28 male with progressive cough over the past several months. Patient believes this may be exposure related. Has been using albuterol with minimal improvement. Patient has some scattered wheezing on exam, no respiratory distress. Chest x-ray obtained, negative for focal pneumonia, no cardiomegaly or acute process. Patient has normal CBC, normal CMP, negative d-dimer, negative troponin, negative BNP. Given Decadron in the emergency department. We will be given pulmonary follow-up regarding further testing. Albuterol will be refilled. - Lab Data Result diagrams: 12/23/18 08:13 12/23/18 08:13 Lab Results 12/23/18 12/23/18 12/23/18 Range/Units 08:13 08:13 08:13 WBC 9.8 (3.8-10.6) k/uL RBC 5.63 (4.30-5.90) m/uL Hgb 16.0 (13.0-17.5) gm/dL Hct 47.2 (39.0-53.0) % MCV 83.8 (80.0-100.0) fL MCH 28.5 (25.0-35.0) pg MCHC 33.9 (31.0-37.0) g/dL RDW 12.6 (11.5-15.5) % Plt Count 252 (150-450) k/uL Neutrophils % 64 % Lymphocytes % 17 % Monocytes % 9 % Eosinophils % 7 % Basophils % 1 % Neutrophils # 6.2 (1.3-7.7) k/uL Lymphocytes # 1.7 (1.0-4.8) k/uL Monocytes # 0.9 (0-1.0) k/uL Eosinophils # 0.7 (0-0.7) k/uL Basophils # 0.1 (0-0.2) k/uL D-Dimer <0.17 (<0.60) mg/L FEU Sodium 143 (137-145) mmol/L Potassium 4.4 (3.5-5.1) mmol/L Chloride 107 (98-107) mmol/L Carbon Dioxide 26 (22-30) mmol/L Anion Gap 10 mmol/L BUN 10 (9-20) mg/dL Creatinine 1.07 (0.66-1.25) mg/dL Est GFR (CKD-EPI)AfAm >90 (>60 ml/min/1.73 sqM) Est GFR (CKD-EPI)NonAf >90 (>60 ml/min/1.73 sqM) Glucose 89 (74-99) mg/dL Calcium 9.8 (8.4-10.2) mg/dL Total Bilirubin 1.1 (0.2-1.3) mg/dL AST 25 (17-59) U/L ALT 24 (21-72) U/L Alkaline Phosphatase 54 (38-126) U/L Troponin I (0.000-0.034) ng/mL NT-Pro-B Natriuret Pep pg/mL Total Protein 7.6 (6.3-8.2) g/dL Albumin 4.9 (3.5-5.0) g/dL 12/23/18 12/23/18 Range/Units 08:13 08:13 WBC (3.8-10.6) k/uL RBC (4.30-5.90) m/uL Hgb (13.0-17.5) gm/dL Hct (39.0-53.0) % MCV (80.0-100.0) fL MCH (25.0-35.0) pg MCHC (31.0-37.0) g/dL RDW (11.5-15.5) % Plt Count (150-450) k/uL Neutrophils % % Lymphocytes % % Monocytes % % Eosinophils % % Basophils % % Neutrophils # (1.3-7.7) k/uL Lymphocytes # (1.0-4.8) k/uL Monocytes # (0-1.0) k/uL Eosinophils # (0-0.7) k/uL Basophils # (0-0.2) k/uL D-Dimer (<0.60) mg/L FEU Sodium (137-145) mmol/L Potassium (3.5-5.1) mmol/L Chloride (98-107) mmol/L Carbon Dioxide (22-30) mmol/L Anion Gap mmol/L BUN (9-20) mg/dL Creatinine (0.66-1.25) mg/dL Est GFR (CKD-EPI)AfAm (>60 ml/min/1.73 sqM) Est GFR (CKD-EPI)NonAf (>60 ml/min/1.73 sqM) Glucose (74-99) mg/dL Calcium (8.4-10.2) mg/dL Total Bilirubin (0.2-1.3) mg/dL AST (17-59) U/L ALT (21-72) U/L Alkaline Phosphatase (38-126) U/L Troponin I <0.012 (0.000-0.034) ng/mL NT-Pro-B Natriuret Pep 99 pg/mL Total Protein (6.3-8.2) g/dL Albumin (3.5-5.0) g/dL Disposition Clinical Impression: Bronchospasm Disposition: HOME SELF-CARE Condition: Good Instructions (If sedation given, give patient instructions): Chronic Bronchitis (ED), Bronchospasm (ED) Prescriptions: Albuterol Inhaler [Ventolin Hfa Inhaler] 1 - 2 puff INHALATION Q4HR PRN #1 inhaler PRN Reason: Shortness Of Breath Is patient prescribed a controlled substance at d/c from ED?: No Referrals: Pedro Ibarra MD [Primary Care Provider] - 1-2 days Braulio Shetty MD [STAFF PHYSICIAN] - 1-2 days Time of Disposition: 10:18
--- NOTE | 2018-12-23 08:20 | XR ---
EXAMINATION TYPE: XR chest 2V DATE OF EXAM: 12/23/2018 COMPARISON: 10/07/2016 HISTORY: Chest pain TECHNIQUE: Frontal and lateral views of the chest are obtained. FINDINGS: There is no focal air space opacity. No evidence for pneumothorax. No pleural effusion. The cardiac silhouette size is within normal limits. The osseous structures are grossly intact. IMPRESSION: 1. No acute cardiopulmonary process.
[2018-12-23 08:44] LABS: ALT 24 U/L (21-72); AST 25 U/L (17-59); Albumin 4.9 g/dL (3.5-5.0); Alkaline Phosphatase 54 U/L (38-126); Anion Gap 10 mmol/L; Basophils # (A) 0.1 k/uL (0-0.2); Basophils % (A) 1 %; Blood Urea Nitrogen 10 mg/dL (9-20); Calcium 9.8 mg/dL (8.4-10.2); Carbon Dioxide 26 mmol/L (22-30); Chloride 107 mmol/L (98-107); Eosinophils # (A) 0.7 k/uL (0-0.7); Eosinophils % (A) 7 %; Glucose 89 mg/dL (74-99); HCT 47.2 % (39.0-53.0); Lymphocytes # (A) 1.7 k/uL (1.0-4.8); Lymphocytes % (A) 17 %; MCH 28.5 pg (25.0-35.0); MCHC 33.9 g/dL (31.0-37.0); MCV 83.8 fL (80.0-100.0); Mean Platelet Volume 6.2; Monocytes # (A) 0.9 k/uL (0-1.0); Monocytes % (A) 9 %; Neutrophils # (A) 6.2 k/uL (1.3-7.7); Neutrophils % (A) 64 %; Platelet Count 252 k/uL (150-450); Potassium 4.4 mmol/L (3.5-5.1); RBC 5.63 m/uL (4.30-5.90); RDW 12.6 % (11.5-15.5); Sodium 143 mmol/L (137-145); Total Bilirubin 1.1 mg/dL (0.2-1.3); Total Protein 7.6 g/dL (6.3-8.2); WBC 9.8 k/uL (3.8-10.6)
[2018-12-23] MEDS ORDERED: DEXAMETHASONE SOD PHOSPHATE 10 MG/ML 1 ML VIAL IV STA (10:10)
[2018-12-23] MEDS ORDERED: IPRATROPIUM-ALBUTEROL 3 ML NEB INHALATION STA (10:31)
[2018-12-23 10:51] VITALS: BP 122/80; RESP 18
[2018-12-23 10:57] VITALS: PULSE 92
== END 2018-12-23 11:01 | disposition home or self-care (01) ==
LOC: EC 07:44
DX: J98.01 Acute bronchospasm (principal); E27.1 Primary adrenocortical insufficiency; Z79.899 Other long term (current) drug therapy; Z87.891 Personal history of nicotine dependence
CPT/HCPCS: 36415; 71046; 80053; 83880; 84484; 85025; 85379; 94640; 96374; 99285

== ENCOUNTER → 2019-09-17 | Outpatient (CLI) | payer BC ==
[2019-09-21 08:34] LABS: Alt. alternata IgE Class CLASS 0; Alternaria alternata IgE <0.10 kU/L (<0.10); Asperg. fumagatus IgE <0.10 kU/L (<0.10); Asperg. fumagatus IgE Class CLASS 0; Candida albicans IgE Class CLASS 0; Clad herbarum IgE <0.10 kU/L (<0.10); Clad herbarum IgE Class CLASS 0; Latex IgE Class CLASS 0; Mucor racemosus IgE <0.10 kU/L (<0.10); Mucor racemosus IgE Class CLASS 0; Penicillium chrysogenum IgE <0.10 kU/L (<0.10); Penicillium chrysogenum IgE Cl CLASS 0
== END | disposition home or self-care (01) ==
LOC: LABWHC1 08:24
PROVIDERS: ATTEND Internal Medicine Sleep Medicine
DX: B44.81 Allergic bronchopulmonary aspergillosis (principal)
CPT/HCPCS: 36415; 82785; 86001; 86003; 86606; 86609

== ENCOUNTER 2019-10-13 08:45 | Emergency (ER) | payer BC ==
[2019-10-13 08:55] VITALS: BP 120/80; PULSE 90; TEMP 98
--- NOTE | 2019-10-13 09:05 | ED ---
Lower Extremity Injury HPI - General Chief Complaint: Extremity Injury, Lower Stated Complaint: lt foot injury Time Seen by Provider: 10/13/19 08:56 Source: patient, RN notes reviewed Mode of arrival: ambulatory Limitations: no limitations - History of Present Illness Initial Comments: This a 28-year-old male presents emergency Department with tumor left foot pain. 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 He states he fell directly into his foot. He states he worked in all night states it is bruised, painful. He's had no prior foot fractures. Denies any paresthesias. - Related Data Home Medications Medication Instructions Recorded Confirmed Fludrocortisone [Florinef] 0.1 mg PO DAILY 04/16/14 12/23/18 Hydrocortisone [Cortef] 5 mg PO HS 11/20/18 12/23/18 Hydrocortisone [Cortef] 10 mg PO QAM 11/20/18 12/23/18 Previous Rx's Medication Instructions Recorded Albuterol Inhaler [Ventolin Hfa 1 - 2 puff INHALATION Q4HR PRN #1 12/23/18 Inhaler] inhaler Ibuprofen [Motrin] 600 mg PO Q8HR PRN #30 tab 10/13/19 Allergies Allergy/AdvReac Type Severity Reaction Status Date / Time No Known Allergies Allergy Verified 12/23/18 08:41 Review of Systems ROS Statement: Those systems with pertinent positive or pertinent negative responses have been documented in the HPI. ROS Other: All systems not noted in ROS Statement are negative. Past Medical History Past Medical History: Asthma Additional Past Medical History / Comment(s): addisons disease, fx rt hand 05/30/18 History of Any Multi-Drug Resistant Organisms: None Reported Past Surgical History: Orthopedic Surgery Additional Past Surgical History / Comment(s): nose surgery. FX RIGHT HAND SX Past Anesthesia/Blood Transfusion Reactions: No Reported Reaction Additional Past Anesthesia/Blood Transfusion Reaction / Comment(s): NO PREVIOUS SURGERY Past Psychological History: No Psychological Hx Reported Smoking Status: Former smoker Past Alcohol Use History: Occasional Past Drug Use History: Marijuana - Past Family History Mother Family Medical History: Thyroid Disorder Father Family Medical History: Diabetes Mellitus General Exam Limitations: no limitations General appearance: alert, in no apparent distress Head exam: Present: atraumatic, normocephalic, normal inspection Respiratory exam: Present: normal lung sounds bilaterally. Absent: respiratory distress, wheezes, rales, rhonchi, stridor Cardiovascular Exam: Present: regular rate, normal rhythm, normal heart sounds. Absent: systolic murmur, diastolic murmur, rubs, gallop, clicks Extremities exam: Present: other (Left foot there is ecchymosis from the first and fifth digit,, tenderness from first to third metatarsal region) Skin exam: Present: warm, dry, intact, normal color. Absent: rash Course Vital Signs 10/13/19 08:53 Temperature 98.0 F Pulse Rate 90 Respiratory 18 Rate Blood Pressure 120/80 O2 Sat by Pulse 98 Oximetry Medical Decision Making - Medical Decision Making X-rays of the left foot are negative for acute fracture. Patient is left foot contusion. Patient we discharged at this time conservative treatment return parameters were discussed Disposition Clinical Impression: Contusion of left foot Disposition: HOME SELF-CARE Condition: Stable Instructions (If sedation given, give patient instructions): Foot Contusion (ED) Additional Instructions: Please return to the Emergency Department if symptoms worsen or any other concerns. Prescriptions: Ibuprofen [Motrin] 600 mg PO Q8HR PRN #30 tab PRN Reason: Pain Is patient prescribed a controlled substance at d/c from ED?: No Referrals: Pedro Ibarra MD [Primary Care Provider] - 1-2 days Time of Disposition: 09:26
--- NOTE | 2019-10-13 09:15 | XR ---
EXAMINATION TYPE: XR foot complete LT DATE OF EXAM: 10/13/2019 CLINICAL HISTORY: Pain and contusion after injury. TECHNIQUE: Frontal, lateral, and oblique images of the left foot are obtained. COMPARISON: None FINDINGS: There is no acute fracture/dislocation evident in the lateral foot. The joint spaces in t he left foot appear within normal limits. The overlying soft tissue appears unremarkable. IMPRESSION: There is no acute fracture or dislocation in the left foot.
[2019-10-13] MEDS ORDERED: ACET/COD 300 MG/30 MG STARTER PACK 6 TAB BTL PO STA (09:25)
[2019-10-13 09:34] VITALS: RESP 20
== END 2019-10-13 09:34 | disposition home or self-care (01) ==
LOC: EC 08:45
DX: S90.32XA Contusion of left foot, initial encounter (principal); Z87.891 Personal history of nicotine dependence; Z79.52 Long term (current) use of systemic steroids; W20.8XXA Other cause of strike by thrown, projected or falling object, initial encounter; Y92.838 Other recreation area as the place of occurrence of the external cause
CPT/HCPCS: 99283

== ENCOUNTER 2019-11-08 09:01 | Emergency (ER) | payer BC ==
--- NOTE | 2019-11-08 09:40 | ED ---
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 Reports that he has a daughter with pneumonia at home. Reports some waxing and waning diarrhea, denies abdominal pain. Denies any other complaints at this time. Systemic: Pt denies fatigue, fever/chills, rash. Pt denies weakness, night sweats, weight loss. Neuro: Pt denies headache, visual disturbances, syncope or pre-syncope. HEENT: Pt denies ocular discharge or irritation, otalgia, rhinorrhea, or notable lymphadenopathy. Cardiopulmonary: Pt denies chest pain, SOB, heart palpitations, dyspnea on exertion. Abdominal/GI: Pt denies abdominal pain, n/v/d. : Pt denies dysuria, burning w/ urination, frequency/urgency. Denies new onset urinary or bowel incontinence. MSK: Pt denies myalgia, loss of strength or function in extremities. Neuro: Pt denies new onset weakness, paresthesias. - Related Data Home Medications Medication Instructions Recorded Confirmed Fludrocortisone [Florinef] 0.1 mg PO DAILY 04/16/14 11/08/19 Albuterol Inhaler [Ventolin Hfa 1 - 2 puff INHALATION RT-Q4H PRN 11/08/19 1 01/09/19 Inhaler] Hydrocortisone [Cortef] 10 mg PO HS 11/08/19 11/08/19 Hydrocortisone [Cortef] 20 mg PO DAILY 11/08/19 11/08/19 Montelukast Sodium [Singulair] 10 mg PO DAILY 11/08/19 11/08/19 Previous Rx's Medication Instructions Recorded Amoxicillin/Potassium Clav 1 each PO Q12HR 10 Days #20 tab 11/08/19 [Augmentin 875-125 Tablet] Allergies Allergy/AdvReac Type Severity Reaction Status Date / Time No Known Allergies Allergy Verified 11/08/19 09:47 Review of Systems ROS Statement: Those systems with pertinent positive or pertinent negative responses have been documented in the HPI. ROS Other: All systems not noted in ROS Statement are negative. Past Medical History Past Medical History: Asthma Additional Past Medical History / Comment(s): addisons disease, fx rt hand History of Any Multi-Drug Resistant Organisms: None Reported Past Surgical History: Orthopedic Surgery Additional Past Surgical History / Comment(s): nose surgery. FX RIGHT HAND SX Past Anesthesia/Blood Transfusion Reactions: No Reported Reaction Additional Past Anesthesia/Blood Transfusion Reaction / Comment(s): NO PREVIOUS SURGERY Past Psychological History: No Psychological Hx Reported Smoking Status: Former smoker Past Alcohol Use History: Occasional Past Drug Use History: Marijuana - Past Family History Mother Family Medical History: Thyroid Disorder Father Family Medical History: Diabetes Mellitus General Exam - General Exam Comments Initial Comments: Constitutional: NAD, AOX3, Pt has pleasant affect. HEENT: NC/AT, trachea midline, neck supple, no lymphadenopathy. Posterior pharynx non erythematous, without exudates. External ears appear normal, without discharge. Mucous membranes moist. Eyes PERRLA, EOM intact. There is no scleral icterus. No pallor noted. Cardiopulmonary: RRR, no murmurs, rubs or gallops, no JVD noted. Lungs CTAB in anterior and posterior malloy. No peripheral edema. Abdominal exam: Abdomen soft and non-distended. Abdomen non-tender to palpation in all 4 quadrants. Bowel sounds active in LLQ. No hepatosplenomegaly. No ecchymosis Neuro: CN II-XII grossly intact. No nuchal rigidity. No raccon eyes, no lehman sign, no hemotympanum. No cervical spinal tenderness. MSK: No posterior calf tenderness bilaterally, homans sign negative bilaterally. Posterior tibialis and radial pulse +2 bilaterally. Sensation intact in upper and lower extremities. Full active ROM in upper and lower extremities, 5/5 stregnth. 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 Reports that he has a daughter with pneumonia at home. Reports some waxing and waning diarrhea, denies abdominal pain. Denies any other complaints at this time. Patient vital signs stable, afebrile. Physical exam did not display acute pathology. Laboratory investigations revealed negative group A strep, influenza. Chest x-ray displayed some mild peribronchial cuffing. Lungs are clear to auscultation. P arash was treated with Augmentin for sinusitis. Will follow up with primary care provider tomorrow and will return to ER if condition worsens. Case discussed with Dr. Gimenez. - Lab Data Lab Results 11/08/19 11/08/19 Range/Units 09:39 09:39 Influenza Type A RNA Not Detected (Not Detectd) Influenza Type B (PCR) Not Detected (Not Detectd) Group A Strep Rapid Negative (Negative) Disposition Clinical Impression: Sinusitis, Cough, Sore throat Disposition: HOME SELF-CARE Condition: Serious Instructions (If sedation given, give patient instructions): Sinusitis (ED) Additional Instructions: Patient to adhere to previously discussed treatment plan and will take medication(s) as directed. Patient to follow up with PCP tomorrow. Patient to return to ED if symptoms do not improve. Take medications as directed. Return to ER if condition worsens in any way. Prescriptions: Amoxicillin/Potassium Clav [Augmentin 875-125 Tablet] 1 each PO Q12HR 10 Days #20 tab Is patient prescribed a controlled substance at d/c from ED?: No Referrals: Pedro Ibarra MD [Primary Care Provider] - 1-2 days
--- NOTE | 2019-11-08 10:12 | XR ---
EXAMINATION TYPE: XR chest 2V DATE OF EXAM: 11/08/2019 COMPARISON: 12/23/2018 HISTORY: 28-year-old male with cough TECHNIQUE: PA and lateral views FINDINGS: The cardiomediastinal silhouette, aorta, and pulmonary vasculature are within normal limits. Mild zaid tral peribronchial cuffing is noted. No consolidation or pleural effusion. IMPRESSION: Some mild central peribronchial cuffing. Correlate for bronchitis or asthma. No focal infiltrate.
[2019-11-08] MEDS ORDERED: AMOXIC-POT CLAV 875-125MG 1 EACH TAB PO STA (10:34)
[2019-11-08] MEDS ORDERED: AMOXIC-POT CLAV 875MG STARTER 2 EACH TABLET PO STA (10:34)
[2019-11-08 10:57] VITALS: BP 123/90; PULSE 77; RESP 19; TEMP 98.1
== END 2019-11-08 10:57 | disposition home or self-care (01) ==
LOC: EC 09:01
DX: J02.9 Acute pharyngitis, unspecified (principal); J32.9 Chronic sinusitis, unspecified; E27.1 Primary adrenocortical insufficiency; J45.909 Unspecified asthma, uncomplicated; Z79.899 Other long term (current) drug therapy; Z87.891 Personal history of nicotine dependence
CPT/HCPCS: 71046; 87081; 87430; 87502; 99284

== ENCOUNTER 2020-01-06 04:09 | Emergency (ER) | payer BC ==
[2020-01-06 04:14] VITALS: TEMP 97.7
[2020-01-06] MEDS ORDERED: IPRATROPIUM-ALBUTEROL 3 ML NEB INHALATION STA (04:27)
--- NOTE | 2020-01-06 04:43 | XR ---
EXAMINATION TYPE: XR chest 2V DATE OF EXAM: 01/06/2020 COMPARISON: 11/08/2019 HISTORY: Chest pain TECHNIQUE: FINDINGS: Heart and mediastinum are normal. Lungs are clear. Diaphragm is normal. Bony thorax appears normal. IMPRESSION: Normal chest. No change.
--- NOTE | 2020-01-06 05:17 | ED ---
URI HPI - General Chief Complaint: Upper Respiratory Infection Stated Complaint: Difficulty Breathing Time Seen by Provider: 01/06/20 04:23 Source: patient Mode of arrival: ambulatory Limitations: no limitations - History of Present Illness MD Complaint: cough Onset/Timin -: days(s) Severity: moderate Consistency: constant Improves With: nothing Worsens With: nothing Associated Symptoms: cough Treatments Prior to Arrival: none - Related Data Home Medications Medication Instructions Recorded Confirmed Fludrocortisone [Florinef] 0.1 mg PO DAILY 04/16/14 11/08/19 Albuterol Inhaler [Ventolin Hfa 1 - 2 puff INHALATION RT-Q4H PRN 11/08/19 11/08/19 Inhaler] Hydrocortisone [Cortef] 10 mg PO HS 11/08/19 11/08/19 Hydrocortisone [Cortef] 20 mg PO DAILY 11/08/19 11/08/19 Montelukast Sodium [Singulair] 10 mg PO DAILY 11/08/19 11/08/19 Previous Rx's Medication Instructions Recorded Amoxicillin/Potassium Clav 1 each PO Q12HR 10 Days #20 tab 11/08/19 [Augmentin 875-125 Tablet] Albuterol Inhaler [Ventolin Hfa 1 - 2 puff INHALATION Q6HR PRN #1 01/06/20 Inhaler] inhaler predniSONE 60 mg PO DAILY #30 tab 01/06/20 Allergies Allergy/AdvReac Type Severity Reaction Status Date / Time No Known Allergies Allergy Verified 01/06/20 04:14 Review of Systems ROS Statement: Those systems with pertinent positive or pertinent negative responses have been documented in the HPI. ROS Other: All systems not noted in ROS Statement are negative. Constitutional: Denies: fever, chills Respiratory: Reports: cough, dyspnea, wheezes Cardiovascular: Denies: chest pain, palpitations, syncope Gastrointestinal: Denies: abdominal pain, nausea, vomiting Musculoskeletal: Denies: back pain Skin: Denies: rash Neurological: Denies: headache, weakness Past Medical History Past Medical History: Asthma Additional Past Medical History / Comment(s): addisons disease, fx rt hand 05/30/18 History of Any Multi-Drug Resistant Organisms: None Reported Past Surgical History: Orthopedic Surgery Additional Past Surgical History / Comment(s): nose surgery. FX RIGHT HAND SX Past Anesthesia/Blood Transfusion Reactions: No Reported Reaction Additional Past Anesthesia/Blood Transfusion Reaction / Comment(s): NO PREVIOUS SURGERY Past Psychological History: No Psychological Hx Reported Smoking Status: Former smoker Past Alcohol Use History: Occasional Past Drug Use History: Marijuana - Past Family History Mother Family Medical History: Thyroid Disorder Father Family Medical History: Diabetes Mellitus General Exam Limitations: no limitations General appearance: alert, in no apparent distress Head exam: Present: atraumatic, normocephalic Eye exam: Present: normal appearance. Absent: scleral icterus, conjunctival i njection Neck exam: Present: normal inspection Respiratory exam: Present: wheezes. Absent: respiratory distress, rales, rhonchi, stridor Cardiovascular Exam: Present: regular rate, normal rhythm, normal heart sounds. Absent: systolic murmur, diastolic murmur, rubs, gallop GI/Abdominal exam: Present: soft. Absent: distended, tenderness, guarding, rebound, rigid, mass Extremities exam: Present: normal inspection, normal capillary refill. Absent: pedal edema, calf tenderness Neurological exam: Present: alert Skin exam: Present: warm, dry, intact, normal color. Absent: rash Course Vital Signs 01/06/20 01/06/20 01/06/20 04:12 04:40 04:48 Temperature 97.7 F Pulse Rate 96 97 84 Respiratory 16 Rate Blood Pressure 130/86 O2 Sat by Pulse 98 Oximetry Disposition Clinical Impression: Asthma exacerbation Disposition: HOME SELF-CARE Condition: Good Instructions (If sedation given, give patient instructions): Asthma (ED) Prescriptions: predniSONE 60 mg PO DAILY #30 tab Albuterol Inhaler [Ventolin Hfa Inhaler] 1 - 2 puff INHALATION Q6HR PRN #1 inhaler PRN Reason: Wheezing Is patient prescribed a controlled substance at d/c from ED?: No Referrals: Pedro Ibarra MD [Primary Care Provider] - 1-2 days
[2020-01-06] MEDS ORDERED: predniSONE 20 MG TAB PO STA (05:59)
[2020-01-06 06:07] VITALS: BP 129/78; PULSE 95; RESP 18
== END 2020-01-06 06:12 | disposition home or self-care (01) ==
LOC: EC 04:09
DX: J44.1 Chronic obstructive pulmonary disease with (acute) exacerbation (principal); Z79.52 Long term (current) use of systemic steroids; Z79.51 Long term (current) use of inhaled steroids; Z87.891 Personal history of nicotine dependence; Z86.39 Personal history of other endocrine, nutritional and metabolic disease
CPT/HCPCS: 71046; 87502; 94640; 99285

== ENCOUNTER 2020-06-21 12:40 | Emergency (ER) | payer BC ==
[2020-06-21] MEDS ORDERED: predniSONE 20 MG TAB PO STA (13:04)
[2020-06-21] MEDS ORDERED: IPRATROPIUM-ALBUTEROL 3 ML NEB INHALATION STA ×2 (13:04→14:05)
--- NOTE | 2020-06-21 13:05 | ED ---
SOB HPI - General Chief Complaint: Shortness of Breath Stated Complaint: SOB Time Seen by Provider: 06/21/20 13:03 Source: patient Mode of arrival: ambulatory Limitations: no limitations - History of Present Illness Initial Comments: Patient is a 29-year-old male with history of asthma presenting to the emergency department with a chief complaint of needing a breathing treatment. 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 Patient reports he has gradually developed increased shortness of breath along with wheezing over the last few days. Patient reports this feels like his previous asthma exacerbations. Denies any night sweats fevers or chills. Denies any chest pain, headaches. Reports he is running low on his albuterol inhaler. States he does smoke marijuana. - Related Data Home Medications Medication Instructions Recorded Confirmed Fludrocortisone [Florinef] 0.1 mg PO DAILY 04/16/14 06/21/20 Hydrocortisone [Cortef] 10 mg PO HS 11/08/19 06/21/20 Hydrocortisone [Cortef] 20 mg PO DAILY 11/08/19 06/21/20 Albuterol Sulfate [Ventolin HFA] 1 - 2 puff INHALATION RT-Q6H PRN 06/21/20 06/21/20 Previous Rx's Medication Instructions Recorded Albuterol Inhaler [Ventolin Hfa 2 puff INHALATION RT-TID PRN #1 06/21/20 Inhaler] inhaler predniSONE 50 mg PO DAILY #5 tab 06/21/20 Allergies Allergy/AdvReac Type Severity Reaction Status Date / Time No Known Allergies Allergy Verified 06/21/20 13:58 Review of Systems ROS Statement: Those systems with pertinent positive or pertinent negative responses have been documented in the HPI. ROS Other: All systems not noted in ROS Statement are negative. Past Medical History Past Medical History: Asthma Additional Past Medical History / Comment(s): addisons disease, History of Any Multi-Drug Resistant Organisms: None Reported Past Surgical History: Orthopedic Surgery Additional Past Surgical History / Comment(s): nose surgery. FX RIGHT HAND SX Past Anesthesia/Blood Transfusion Reactions: No Reported Reaction Additional Past Anesthesia/Blood Transfusion Reaction / Comment(s): NO PREVIOUS SURGERY Past Psychological History: No Psychological Hx Reported Smoking Status: Never smoker Past Alcohol Use History: Occasional Past Drug Use History: Marijuana - Past Family History Mother Family Medical History: Thyroid Disorder Father Family Medical History: Diabetes Mellitus General Exam Limitations: no limitations General appearance: alert, in no apparent distress Head exam: Present: atraumatic, normocephalic, normal inspection Eye exam: Present: normal appearance, PERRL, EOMI Pupils: Present: normal accommodation ENT exam: Present: normal exam, normal oropharynx, mucous membranes moist, TM's normal bilaterally, normal external ear exam Neck exam: Present: normal inspection, full ROM. Absent: tenderness Respiratory exam: Present: wheezes (Diffuse bilateral wheezing) Cardiovascular Exam: Present: regular rate, normal rhythm, normal heart sounds GI/Abdominal exam: Present: soft. Absent: distended, tenderness, guarding Extremities exam: Present: normal inspection, full ROM, normal capillary refill, other (+2 ulnar and radial pulses bilateral.). Absent: tenderness Back exam: Present: normal inspection, full ROM Neurological exam: Present: alert, oriented X3 Psychiatric exam: Present: normal affect, normal mood Skin exam: Present: warm, dry, intact, normal color Course Vital Signs 06/21/20 06/21/20 06/21/20 12:44 13:29 13:31 Temperature 97.5 F L Pulse Rate 52 L 108 H Respiratory 18 22 Rate Blood Pressure 130/78 O2 Sat by Pulse 97 Oximetry 06/21/20 06/21/20 06/21/20 13:36 14:36 14:45 Temperature Pulse Rate 86 108 H 96 Respiratory Rate Blood Pressure O2 Sat by Pulse Oximetry 06/21/20 14:53 Temperature 98.0 F Pulse Rate 89 Respiratory 16 Rate Blood Pressure 129/87 O2 Sat by Pulse 100 Oximetry Medical Decision Making - Medical Decision Making Patient is 29-year-old male presenting to emergency departments chief complaint of shortness of breath. Patient does have history of asthma and does smoke marijuana. 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 States this feels exactly like his other asthma exacerbations. On exam patient has bilateral wheezing diffusely. Chest x-ray is unremarkable. Patient was given 2 DuoNeb treatments and started on 60 mg of prednisone. Reevaluation there appears to be resolution of the wheezing, patient agrees and states he feels much better. Patient will be discharged on a five-day course of prednisone. He was advised to follow-up with a primary care physician. Return parameters were thoroughly discussed patient is worsening agreeable. Patient also will be discharged with albuterol inhaler. I counseled the patient for smoking cessation for greater than 3 minutes. Case discussed physician. Disposition Clinical Impression: Asthma exacerbation, Shortness of breath Disposition: HOME SELF-CARE Condition: Stable Instructions (If sedation given, give patient instructions): Asthma (DC) Additional Instructions: Take prescribed medication as directed. Follow up with her primary care physician. Return to emergency department if symptoms worsen. Prescriptions: predniSONE 50 mg PO DAILY #5 tab Albuterol Inhaler [Ventolin Hfa Inhaler] 2 puff INHALATION RT-TID PRN #1 inhaler PRN Reason: wheez Is patient prescribed a controlled substance at d/c from ED?: No Referrals: Pedro Ibarra MD [Primary Care Provider] - 1-2 days Time of Disposition: 14:07
--- NOTE | 2020-06-21 13:48 | XR ---
EXAMINATION TYPE: XR chest 2V DATE OF EXAM: 06/21/2020 COMPARISON: 01/06/2020 INDICATION: Difficulty breathing history of asthma TECHNIQUE: Frontal and lateral views of the chest are obtained. FINDINGS: The heart size is normal. The pulmonary vasculature is normal. The lungs are clear. Some hyperinflation is present. IMPRESSION: 1. No acute pulmonary process.
[2020-06-21 14:54] VITALS: BP 129/87; PULSE 89; RESP 16; TEMP 98
== END 2020-06-21 14:53 | disposition home or self-care (01) ==
LOC: EC 12:40
DX: J45.901 Unspecified asthma with (acute) exacerbation (principal); E27.1 Primary adrenocortical insufficiency; F17.290 Nicotine dependence, other tobacco product, uncomplicated; Z71.6 Tobacco abuse counseling; Z79.899 Other long term (current) drug therapy
CPT/HCPCS: 94640 ×2; 93005; 71046; 99285; J7512

== ENCOUNTER 2021-11-13 11:37 | Emergency (ER) | payer BC, OTHER ==
[2021-11-13 12:19] VITALS: TEMP 97.7
--- NOTE | 2021-11-13 13:32 | ED ---
General Adult HPI - General Chief complaint: Nausea/Vomiting/Diarrhea Stated complaint: Covid+/BAM Time Seen by Provider: 11/13/21 13:15 Source: patient, family, RN notes reviewed Mode of arrival: ambulatory Limitations: no limitations - History of Present Illness Initial comments: Well-appearing 30-year-old male presents to the emergency room with complaints of body aches and that came on the middle the night. Patient states that he has not been vaccinated against coronavirus. 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 He states he did vomit one time, denies any diarrhea or difficulty in breathing or fevers. -: days(s) (1) Severity scale (1-10): 9 Quality: aching Consistency: constant Improves with: none Worsens with: none Associated Symptoms: malaise, nausea/vomiting Treatments Prior to Arrival: none - Related Data Home Medications Medication Instructions Recorded Confirmed Fludrocortisone [Florinef] 0.1 mg PO DAILY 04/16/14 06/21/20 Hydrocortisone [Cortef] 10 mg PO HS 11/08/19 06/21/20 Hydrocortisone [Cortef] 20 mg PO DAILY 11/08/19 06/21/20 Albuterol Sulfate [Ventolin HFA] 1 - 2 puff INHALATION RT-Q6H PRN 06/21/20 06/21/20 Previous Rx's Medication Instructions Recorded Albuterol Inhaler [Ventolin Hfa 2 puff INHALATION RT-TID PRN #1 06/21/20 Inhaler] inhaler predniSONE 50 mg PO DAILY #5 tab 06/21/20 predniSONE 50 mg PO DAILY 3 Days #3 tab 07/16/20 Allergies Allergy/AdvReac Type Severity Reaction Status Date / Time No Known Allergies Allergy Verified 07/16/20 11:48 Review of Systems ROS Statement: Those systems with pertinent positive or pertinent negative responses have been documented in the HPI. ROS Other: All systems not noted in ROS Statement are negative. Past Medical History Past Medical History: Asthma Additional Past Medical History / Comment(s): addisons disease, History of Any Multi-Drug Resistant Organisms: None Reported Past Surgical History: Orthopedic Surgery Additional Past Surgical History / Comment(s): nose surgery. FX RIGHT HAND SX Past Anesthesia/Blood Transfusion Reactions: No Reported Reaction Additional Past Anesthesia/Blood Transfusion Reaction / Comment(s): NO PREVIOUS SURGERY Past Psychological History: No Psychological Hx Reported Smoking Status: Never smoker Past Alcohol Use History: Occasional Past Drug Use History: Marijuana - Past Family History Mother Family Medical History: Thyroid Disorder Father Family Medical History: Diabetes Mellitus General Exam Limitations: no limitations General appearance: alert, in no apparent distress Head exam: Present: atraumatic, normocephalic, normal inspection Eye exam: Present: normal appearance, EOMI. Absent: scleral icterus, conjunctival injection ENT exam: Present: normal exam, normal oropharynx, mucous membranes moist Neck exam: Present: normal inspection, full ROM. Absent: tenderness, meningismus, lymphadenopathy, thyromegaly Respiratory exam: Present: normal lung sounds bilaterally. Absent: respiratory distress, wheezes, rales, rhonchi, stridor, chest wall tenderness, accessory muscle use, decreased breath sounds Cardiovascular Exam: Present: regular rate, normal rhythm, normal heart sounds. Absent: systolic murmur, diastolic murmur, rubs, gallop, clicks GI/Abdominal exam: Present: soft, normal bowel sounds. Absent: distended, tenderness, guarding, rebound, rigid Extremities exam: Present: full ROM, normal capillary refill. Absent: pedal edema, calf tenderness Neurological exam: Present: alert, oriented X3 Psychiatric exam: Present: normal affect, normal mood Skin exam: Present: warm, dry, intact, normal color. Absent: rash, cyanosis, diaphoretic, petechiae, pallor Course Vital Signs 11/13/21 11/13/21 12:16 15:44 Temperature 97.7 F Pulse Rate 88 84 Respiratory 17 18 Rate Blood Pressure 104/65 121/74 O2 Sat by Pulse 100 100 Oximetry Medical Decision Making - Medical Decision Making 30-year-old male presents with complaints of body aches and that came on the middle the night. Patient states that he has not been vaccinated against coronavirus. He is Covid positive. 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 He was agreeable to the infusion. He tolerated it well. He was discharged home directed to self quarantine for 10 days of symptom onset in 24 hours without fever. Return to the emergency room for any new or worsening symptoms. Case discussed with Dr. Vides. - Lab Data Lab Results 11/13/21 Range/Units 12:21 Coronavirus (PCR) Detected A (Not Detectd) Disposition Clinical Impression: COVID-19 Disposition: HOME SELF-CARE Condition: Good Instructions (If sedation given, give patient instructions): Coronavirus Disease 2019 (COVID-19) Additional Instructions: Increase your fluid intake, Tylenol and/or Motrin as needed for fevers or body aches. Follow-up with the primary care doctor as needed. You can take vitamin C, vitamin D and zinc for immune health. Return to the emergency room with any new or worsening symptoms. Is patient prescribed a controlled substance at d/c from ED?: No Referrals: Pedro Ibarra MD [Primary Care Provider] - 1-2 days Time of Disposition: 14:55
[2021-11-13] MEDS ORDERED: BAMLANIVIMAB (EUA) 700 MG, ETESEVIMAB (EUA) 1,400 MG in SODIUM CHLORIDE 0.9% 100 ML IVPB ONE (13:45)
[2021-11-13] MEDS ORDERED: SODIUM CHLORIDE 0.9% 50 ML IVPB ONE (13:45)
[2021-11-13] MEDS ORDERED: IBUPROFEN 600 MG TAB PO STA (14:26)
[2021-11-13 15:46] VITALS: BP 121/74; PULSE 84; RESP 18
== END 2021-11-13 15:52 | disposition home or self-care (01) ==
LOC: EC 11:37
DX: U07.1 COVID-19 (principal); J45.909 Unspecified asthma, uncomplicated; F12.90 Cannabis use, unspecified, uncomplicated; Z79.52 Long term (current) use of systemic steroids; Z79.51 Long term (current) use of inhaled steroids; Z79.899 Other long term (current) drug therapy
CPT/HCPCS: 87635; 99284; J3490